=== PATIENT | female | born 1995 | race Two or more races ===

== ENCOUNTER 2021-03-22 13:09 | Outpatient (CLI) | payer OTHER | END 2021-03-22 13:19 | disposition home or self-care (01) | LOC: RAD 13:09 | DX: M43.8X6 Other specified deforming dorsopathies, lumbar region (principal); M54.2 Cervicalgia; M54.5 Low back pain ==

== ENCOUNTER 2023-11-11 12:17 | Emergency (ER) | payer OTHER ==
[~2023-11-11] VITALS: Ht 154.9 cm; Wt 43.1 kg
[2023-11-11 14:58] LABS: HEMATOCRIT 40.5 % (36.0-45.00); MEAN CELL VOLUME 92.5 fL (80.00-100.00); MEAN CORPUSCULAR HGB CONC 34.6 g/dl (32.0-36.0); PLATELET COUNT 305 K/uL (150-450); RED BLOOD COUNT 4.37 M/uL (4.00-6.00); RED CELL DISTRIBUTION WIDTH 12.7 % (11.5-14.5)
[2023-11-11] MEDS ORDERED: LORazepam 2 MG/ML VIAL IM ONE (15:15)
== END 2023-11-11 15:57 | disposition home or self-care (01) ==
LOC: ER 12:18
PROVIDERS: General Practice
DX: F41.8 Other specified anxiety disorders (principal)

== ENCOUNTER 2024-02-11 13:35 | Emergency (ER) | payer OTHER ==
[~2024-02-11] VITALS: Ht 154.9 cm; Wt 39.0 kg
[2024-02-11] MEDS ORDERED: PROTONIX40 M1 PO (13:48)
[2024-02-11] MEDS ORDERED: BUPROPION XL450 MG (13:49)
[2024-02-11] MEDS ORDERED: RINGERS SOLUTION,LACTATED 1,000 ML IV STA (14:53)
[2024-02-11] MEDS ORDERED: METOCLOPRAMIDE HCL 5 MG/ML VIAL IV STA (14:54)
[2024-02-11] MEDS ORDERED: FAMOtidine 10 MG/ML (4ML VIAL) IV STA (14:54)
[2024-02-11] MEDS ORDERED: MAG HYDROX/ALUMINUM HYD/SIMETH 30 ML BLIST.PACK PO STA (14:54)
[2024-02-11] MEDS ORDERED: DEXAMETHASONE SODIUM PHOSPHATE 4 MG/ML VIAL IV STA (14:55)
[2024-02-11] MEDS ORDERED: DEXAMETHASONE SODIUM PHOSPHATE 4 MG/ML VIAL ONE (15:08)
[2024-02-11] MEDS ORDERED: METOCLOPRAMIDE HCL 5 MG/ML VIAL ONE (15:08)
[2024-02-11] MEDS ORDERED: FAMOTIDINE/PF 20 MG/2 ML VIAL ONE (15:09)
[2024-02-11] MEDS ORDERED: MAG HYDROX/ALUMINUM HYD/SIMETH 30 ML BLIST.PACK PO ONE (15:09)
[2024-02-11 15:17] LABS: HEMATOCRIT 41.9 % (36.0-45.00); HEMOGLOBIN 14.6 g/dL (12.0-15.00); MEAN CELL VOLUME 90.2 fL (80.00-100.00); MEAN CORPUSCULAR HEMOGLOBIN 31.4 pg (27.00-32.0); MEAN CORPUSCULAR HGB CONC 34.8 g/dl (32.0-36.0); PLATELET COUNT 425 K/uL (150-450); RED BLOOD COUNT 4.64 M/uL (4.00-6.00)
[2024-02-11 15:32] LABS: URINE APPEARANCE Cloudy; URINE BILIRRUBIN Negative (NEGATIVE); URINE BLOOD Negative; URINE COLOR Yellow; URINE GLUCOSE Negative (NEGATIVE); URINE LEUKOCYTE Small; URINE NITRATE Negative; URINE PROTEIN Negative (NEGATIVE); URINE UROBILINOGEN 0.2 E.U./dl
[2024-02-11 15:33] LABS: URINE EPITHELIAL CELLS 23.7 uL (0.0-38.8); URINE RBC 4.1 uL (0.0-20.8); URINE WBC 12.1 uL (0.0-23.2)
[2024-02-11 15:42] LABS: BILIRUBIN TOTAL 1.58 mg/dL (0.3-1.2); BILIRUBIN,CONJUGATED 0.32 mg/dL (0.0-0.2); BILIRUBIN,UNCONJUGATED 1.26 mg/dL (0.0-0.6); CALCIUM 9.8 mg/dL (8.5-10.1); CREATININE SERUM 0.89 mg/dL (0.55-1.02); GFR 76.67; POTASSIUM 3.99 mEq/L (3.5-5.1); TOTAL PROTEIN 8.3 gm/dL (6.4-8.2)
[2024-02-11] MEDS ORDERED: MAALOX MAXIMUM355 ML PO (18:56)
[2024-02-11] MEDS ORDERED: PEPCID20 MG PO (18:56)
== END 2024-02-11 19:00 | disposition home or self-care (01) ==
LOC: ER 13:36
PROVIDERS: General Practice
DX: K21.9 Gastro-esophageal reflux disease without esophagitis (principal)

== ENCOUNTER 2024-06-04 10:05 | Emergency (ER) | payer OTHER ==
[~2024-06-04] VITALS: Ht 154.9 cm; Wt 40.8 kg
[~2024-06-04 10:05] MED LIST: BUPROPION XL450 MG; MAALOX MAXIMUM355 ML PO; PEPCID20 MG PO; PROTONIX40 M1 PO
[2024-06-04] MEDS ORDERED: KETOROLAC TROMETHAMINE 60 MG VIAL IM STA (11:37)
[2024-06-04 12:26] LABS: HEMATOCRIT 39.9 % (36.0-45.00); HEMOGLOBIN 13.1 g/dL (12.0-15.00); MEAN CELL VOLUME 94.4 fL (80.00-100.00); MEAN CORPUSCULAR HEMOGLOBIN 30.9 pg (27.00-32.0); MEAN CORPUSCULAR HGB CONC 32.8 g/dl (32.0-36.0); PLATELET COUNT 291 K/uL (150-450); RED BLOOD COUNT 4.23 M/uL (4.00-6.00); RED CELL DISTRIBUTION WIDTH 12.6 % (11.5-14.5)
== END 2024-06-04 12:46 | disposition home or self-care (01) ==
LOC: ER 10:07
PROVIDERS: General Practice
DX: M94.0 Chondrocostal junction syndrome [Tietze] (principal)